=== PATIENT | female | born 1985 | race African-American/Black ===

== ENCOUNTER 2019-08-21 12:41 | Emergency (ER) | payer SELFPAY ==
--- NOTE | ~2019-08-21 | XR_ITS ---
XR chest 2V DATE: 08/21/2019 13:10 INDICATION: Cough TECHNIQUE: PA and lateral views COMPARISON: None FINDINGS: Normal heart size. No hilar or mediastinal enlargement. No pulmonary infiltrate or consolid ation, pleural effusion or pulmonary vascular congestion or pneumothorax is detected. IMPRESSION: No active cardiopulmonary disease Reviewed, dictated and finalized at location B. [employer]
--- NOTE | 2019-08-21 12:47 | ED_ITS ---
I attest that this documentation has been prepared under the direction and in the presence of Linda Song MD. ShyMayraangie Baptiste Sowmya WINTER 08/21/19;12:48 HPI - URI/Sore Throat General Chief Complaint: Back Pain/Injury Stated Complaint: back pain Time Seen by Provider: 08/21/19 12:45 Source: patient Mode of arrival: EMS Limitations: no limitations History of Present Illness HPI Narrative: A 33 y/o female pt presents to the ed, via EMS, with c/o flu-like symptoms that began on Tuesday (4 days ago). Pt states that her children were sick with similar Sx last week. She notes resting and taking medication over the weekend helped to alleviate her Sx, however this morning her Sx began worsening. Pt notes having back pain, body aches, cough, CP, SOB, chills, and nausea, but d enies fever, vomiting, or diarrhea. At work today Was not feeling well when woke up Fatigued and sx since Tuesday Tried taking medicine and getting rest and started to feel better but now feels worse Metformin for dm No asthma Htn No smoking No high cholesterol SOB and CP Chills No fever Nausea up No vomiting diarrhea Related Data Allergies Allergy/AdvReac Type Severity Reaction Status Date / Time No Known Allergies Allergy Mild Verified 02/23/08 16:05 Exam Narrative: Exam Narrative: General appearance: Well-developed, well-nourished, ill looking Skin: Normal color Head: Normocephalic, nontraumatic Eyes: Clear conjunctiva ENT: Oropharynx normal, ears normal, nose normal Neck: Supple, nontender Chest and respiratory: Airway patent, no respiratory distress, no accessory muscle use Heart: Regular rate/rhythm Abdomen: Soft, nontender, no organomegaly, quiet bowel sounds Vascular: Normal peripheral pulses, normal capillary refill. 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 Influenza swab ordered, ibuprofen 600 p.o. ordered. Further plan to follow Differential Diagnosis Differential diagnosis: Likely upper respiratory infection, viral infection and influenza Lab Data Labs: [facility] Bedside Result Negative Reference Range: Negative Influenza A Screen Positive Reference Range: Negative Influenza B Screen Negative Reference Rang
--- NOTE | 2019-08-21 12:47 | ED.URI ---
HPI - URI/Sore Throat General Chief Complaint: Back Pain/Injury Stated Complaint: back pain Time Seen by Provider: 08/21/19 12:45 Source: patient Mode of arrival: EMS Limitations: no limitations History of Present Illness HPI Narrative: A 33 y/o female pt presents to the ed, via EMS from work, with c/o flu-like symptoms that began on Tuesday (4 days ago). Pt states that her children were sick with similar Sx last week. She notes resting and taking OTC medication helped to alleviate her Sx over the weekend, however this morning her Sx began worsening. Pt reports having back pain, body aches, CORONADO, cough, fatigue, CP, SOB, chills, and nausea, but denies fever, vomiting, or diarrhea. She notes taking Metformin for DM, but otherwise denies taking any medications. Pt denies a Hx of smoking. MD elicited complaint: cough and other (body aches, back pain) Onset (ago): day(s) (4) Consistency: progressively worsening Relieving factors: OTC cold medicine and rest Context: sick contacts (children) Associated symptoms: chills, myalgias, headache, cough, chest pain, shortness of breath, nausea and other (fatigue, back pain) Related Data Allergies Allergy/AdvReac Type Severity Reaction Status Date / Time No Known Allergies Allergy Mild Verified 02/23/08 16:05 Review of Systems Review of Systems: All systems reviewed & are unremarkable except as noted in HPI and below Constitutional: Constitutional: Reports body ache(s), Reports chills, Reports fatigue, Denies fever(s) and Reports headache(s) Cardiovascular: Cardiovascular: Reports chest pain Respiratory: Respiratory: Reports cough and Reports dyspnea Gastrointestinal: Gastrointestinal: Denies diarrhea, Reports nausea and Denies vomiting Musculoskeletal: Musculoskeletal: Reports back pain PMFSH Past Medical History Medical History (Updated 08/21/19 @ 13:17 by MAGGY Marroquin) Diabetes mellitus Surgical History Surgical History (Updated 08/21/19 @ 13:18 by MAGGY Marroquin) No significant past surgical history Social History Social History (Updated 08/21/19 @ 13:18 by Geovanna Begum [employer]) Smoking status: Never smoker Exam Narrative: Exam Narrative: General appearance: Well-developed, well-nourished, ill looking Skin: Normal color Head: Normocephalic, nontraumatic Eyes: Clear conjunctiva ENT: Oropharynx normal, ears normal, nose normal Neck: Supple, nontender Chest and respiratory: Airway patent, no respiratory distress, no accessory muscle use Heart: Regular rate/rhythm Abdomen: Soft, nontender, no organomegaly, quiet bowel sounds Vascular: Normal peripheral pulses, normal capillary refill. 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 Influenza swab ordered, ibuprofen 600 p.o. ordered. Further plan to follow Differential Diagnosis Differential diagnosis: Likely upper respiratory infection, viral infection and influenza Lab Data Labs: [facility] Bedside Result Negative Reference Range: Neg
[2019-08-21 12:56] VITALS: BP 127/89; PULSE 93; RESP 20; TEMP 37.5; O2SAT 100
[2019-08-21 13:44] VITALS: BP 132/78; PULSE 82; RESP 19; O2SAT 100
[2019-08-21] MEDS: OSELTAMIVIR PHOSPHATE 75 MG CAP PO (13:44)
== END 2019-08-21 13:57 | disposition home or self-care (01) ==
PROVIDERS: Emergency Provider Emergency Medicine
DX: J10.1 Influenza due to other identified influenza virus with other respiratory manifestations (principal)
CPT/HCPCS: 71046; 81025; 87804; 99283; A9270